=== PATIENT | male | born 1975 | race Asian ===

== ENCOUNTER 2020-07-26 20:09 | Emergency (ER) | payer OTHER ==
[~2020-07-26] VITALS: Ht 180.3 cm; Wt 74.8 kg
--- NOTE | 2020-07-26 20:30 | NUR ---
Dr. Waters at bedside for MSE
--- NOTE | 2020-07-26 20:48 | NUR ---
Patient discharged to home in stable condition. Written and verbal after care instructions given. Patient verbalizes understanding of instructions. Stressed follow up or return to ER for worsening s/s. aa/ox4. able to speak in complete sentences respiration even and unlabored in stable condition no s/s of distress all belongings with pt ambulatory with steady gait
[2020-07-26 20:53] VITALS: BP 124/95
== END 2020-07-26 20:50 | disposition home or self-care (01) ==
LOC: ER 20:09
DX: B34.9 Viral infection, unspecified (principal); R53.81 Other malaise; R50.9 Fever, unspecified; Z20.828 Contact with and (suspected) exposure to other viral communicable diseases
CPT/HCPCS: 99283; U0003; A4663